=== PATIENT | male | born 1945 | race Caucasian/White ===

== ENCOUNTER 2019-09-28 18:30 | Emergency (ER) | payer MEDICARE ==
[~2019-09-28] VITALS: Ht 165.1 cm; Wt 63.7 kg
[2019-09-28] MEDS ORDERED: FERR325T22 PO (19:01)
[2019-09-28] MEDS ORDERED: LISI2.5T2 PO (19:01)
[2019-09-28] MEDS ORDERED: VIT D3 PO (19:01)
[2019-09-28] MEDS ORDERED: FURO20TA4 PO (19:01)
[2019-09-28] MEDS ORDERED: METO25TA6 PO (19:01)
[2019-09-28] MEDS ORDERED: ATOR40TA71 PO (19:01)
[2019-09-28] MEDS ORDERED: ASPI81TA39 PO (19:01)
[2019-09-28] MEDS ORDERED: LEVO50TA11 PO (19:01)
[2019-09-28] MEDS ORDERED: CHOL100018 PO (19:20)
[2019-09-28 19:48] VITALS: BP 102/58
[2019-09-28 20:06] LABS: HEMATOCRIT 35.1 % (41-53); HEMOGLOBIN 12.2 g/dL (13.5-17.5); MEAN CORPUSCULAR HEMOGLOBIN 30.2 pg (26.0-34.0); MEAN CORPUSCULAR HGB CONC 34.8 G/dL (31.0-37.0); MEAN CORPUSCULAR VOLUME 87 fL (80-100); PLATELET COUNT (AUTO) 216 K/uL (150-450); RED BLOOD CELL COUNT(AUTO) 4.04 MIL/uL (4.50-5.90); RED CELL DISTRIBUTION WIDTH 13.6 % (11.5-14.5)
[2019-09-28 20:11] LABS: CALCIUM, TOTAL 9.7 mg/dL (8.8-10.5); CREATININE 1.33 mg/dL (0.60-1.30); POTASSIUM 4.2 mmol/L (3.5-5.1)
[2019-09-28 20:17] LABS: ALBUMIN 3.6 g/dL (3.4-5.0); BILIRUBIN,TOTAL 0.4 mg/dL (0.1-1.0); TOTAL PROTEIN, SERUM 7.6 g/dL (6.4-8.2)
[2019-09-28 20:19] LABS: PROTHROMBIN TIME 10.6 SEC (9.4-11.6)
[2019-09-28 21:10] LABS: BAND NEUTROPHILS % (MANUAL) 30 % (0-5); LYMPHOCYTES % (MANUAL) 5 % (22-44); MONOCYTES % (MANUAL) 6 % (2-9); SEGMENTED NEUTROPHILS % 59 % (40-70)
== END 2019-09-28 22:44 | disposition home or self-care (01) ==
LOC: EMS 18:34
DX: R11.10 Vomiting, unspecified (principal); I10 Essential (primary) hypertension; Z79.82 Long term (current) use of aspirin; Z88.6 Allergy status to analgesic agent; Z79.899 Other long term (current) drug therapy
CPT/HCPCS: 82270; 82271; 86850; 86900; 86901

== ENCOUNTER 2019-10-07 22:42 | Emergency (ER) | payer MEDICARE ==
[~2019-10-07] VITALS: Ht 160 cm; Wt 62.1 kg
[~2019-10-07 22:42] MED LIST: ASPI81TA39 PO; ATOR40TA71 PO; CHOL100018 PO; FERR325T22 PO; FURO20TA4 PO; LEVO50TA11 PO; LISI2.5T2 PO; METO25TA6 PO
[2019-10-08] MEDS ORDERED: MethylPREDNISolone SOD SUCC 125 MG/2 ML VIAL IVP ONE (00:15)
[2019-10-08] MEDS ORDERED: ALBUTEROL SULFATE 5 MG/ML 20 ML NEB SOLN [BULK] NEB ONE (00:15)
[2019-10-08] MEDS ORDERED: IPRATROPIUM BROMIDE 0.5 MG/2.5 ML NEB SOLUTION NEB ONE (00:15)
[2019-10-08] MEDS ORDERED: SODIUM CHLORIDE 0.9% 0 ML ONE (00:19)
[2019-10-08] MEDS ORDERED: IOVERSOL 350 MG/ML 100 ML VIAL ONE (00:19)
[2019-10-08 00:59] LABS: BASOPHILS % (AUTO) 0.2 % (0.0-2.0); EOSINOPHILS % (AUTO) 0.2 % (1.0-6.0); HEMOGLOBIN 11.6 g/dL (13.5-17.5); LYMPHOCYTES # (AUTO) 0.7 K/uL (1.0-4.8); LYMPHOCYTES % (AUTO) 4.8 % (22.0-44.0); MEAN CORPUSCULAR HGB CONC 34.1 G/dL (31.0-37.0); MEAN CORPUSCULAR VOLUME 88 fL (80-100); MONOCYTES # (AUTO) 0.5 K/uL (0.1-1.0); MONOCYTES % (AUTO) 3.4 % (2.0-9.0); NEUTROPHILS # (AUTO) 12.8 K/uL (1.8-7.7); PLATELET COUNT (AUTO) 283 K/uL (150-450); RED BLOOD CELL COUNT(AUTO) 3.87 MIL/uL (4.50-5.90); RED CELL DISTRIBUTION WIDTH 13.7 % (11.5-14.5)
[2019-10-08 01:00] LABS: NEUTROPHILS % (AUTO) 91.4 % (40.0-70.0)
[2019-10-08 01:07] LABS: CALCIUM, TOTAL 10.5 mg/dL (8.8-10.5); CREATININE 1.67 mg/dL (0.60-1.30); POTASSIUM 4.5 mmol/L (3.5-5.1)
[2019-10-08 01:11] LABS: PLATELET MORPHOLOGY COMMENT GIANT PLTS PRESENT
[2019-10-08 01:14] LABS: ALBUMIN 3.4 g/dL (3.4-5.0); BILIRUBIN,TOTAL 0.4 mg/dL (0.1-1.0); TOTAL PROTEIN, SERUM 7.5 g/dL (6.4-8.2)
[2019-10-08 02:09] VITALS: BP 104/68
== END 2019-10-08 02:35 | disposition left against medical advice (07) ==
LOC: EMS 22:44
DX: J18.9 Pneumonia, unspecified organism (principal); R79.89 Other specified abnormal findings of blood chemistry; I10 Essential (primary) hypertension; Z79.82 Long term (current) use of aspirin; Z79.899 Other long term (current) drug therapy
CPT/HCPCS: 36415; 71045; 80053; 84484; 85025; 93005; 99291; J2930; J7050